=== PATIENT | female | born 1980 | race American Indian/Alaskan Native ===

== ENCOUNTER 2016-10-27 13:00 | Day surgery (SDC) | payer BC ==
[~2016-10-27 13:00] MED LIST: ANCEF/STERILE WATER 2 GM/20 ML IV NR; DILAUDID IV PRN; NACL 0.9% 1000 ML 1,000 ML IV SCH; NACL 0.9% IR ONE; PEPCID PO NR; SUBLIMAZE IV PRN; ZOFRAN IV PRN
--- NOTE | 2016-10-27 13:53 | Anesthesia Consultation ---
Anesthesia Consult and Med Hx Date of service: 10/27/16 - Airway Anesthetic Teeth Evaluation: Good (upper/lower braces) ROM Head & Neck: Adequate Mental/Hyoid Distance: Adequate Mallampati Class: Class II Intubation Access Assessment: Good - Pulmonary Exam CTA: Yes (clear blbs) - Cardiac Exam Cardiac Exam: RRR - Pre-Operative Health Status ASA Pre-Surgery Classification: ASA2 Proposed Anesthetic Plan: General - Central Nervous System Hx Psychiatric Problems: No - Endocrine Hx Hypothyroidism: Yes ("RESOLVED, NO MEDICINES") - Other Systems Hx Alcohol Use: Yes (SOCIALLY/1 EVERY 3 WKS) Hx Substance Use: No Hx Cancer: No - Additional Comments Anesthesia Medical History Comments: ADHD on meds
--- NOTE | 2016-10-27 13:54 | Anesthesia Day of Surgery ---
Anesthesia Day of Surgery - Day of Surgery Patient Examined: Yes Patient H&P Reviewed: Yes Patient is NPO: Yes Beta Blockers: No Cardiac Clearance: No Pulmonary Clearance: No
[2016-10-27] MEDS ORDERED: DIPRIVAN 10 MG/ML IV ONE (14:39)
[2016-10-27] MEDS ORDERED: DILAUDID ONE (14:39)
[2016-10-27] MEDS ORDERED: XYLOCAINE MPF 2% ONE (14:39)
[2016-10-27] MEDS ORDERED: DECADRON ONE (17:12)
[2016-10-27] MEDS ORDERED: NACL 0.9% IR ONE (17:36)
[2016-10-27] MEDS ORDERED: ZOFRAN ONE ×2 (17:41→19:57)
[2016-10-27] MEDS ORDERED: NACL 0.9% 1000 ML 1,000 ML ONE (17:41)
[2016-10-27] MEDS ORDERED: NORMODYNE IV ONE (17:48)
[2016-10-27] MEDS ORDERED: PERCOCET 5/325 PO PRN (20:03)
[2016-10-27] MEDS ORDERED: ZOFRAN IV PRN (20:03)
--- NOTE | 2016-10-27 20:25 | Operative Report ---
SERVICE: Plastic Surgery. PREOPERATIVE DIAGNOSIS: Macromastia. POSTOPERATIVE DIAGNOSIS: Macromastia. PROCEDURE: Bilateral reduction mammoplasty. SURGEON: Matt Valentin MD CORRECTIONAL OFFICER CHIEF: Jonas Reynoso CSA FINDINGS: 600 gm removed from the right breast, 480 gm removed from the left breast. DESCRIPTION OF PROCEDURE: The patient was brought to the operating room and placed on the table in supine position. Following administration of general anesthesia, bilateral breasts were prepped with Betadine solution and draped in usual sterile manner. A #10 blade scalpel was used to make a circumareolar skin incision followed by de-epithelization of an inferior dermal pedicle. Modified Harris pattern skin markings were incised with scalpel, deepened through subcutaneous fat and breast tissue using the electrocautery. Skin flaps were raised in standard manner as was fashioning of an inferior central mound pedicle. Hemostasis was controlled using electrocautery. Breast tissue was resected and sent to pathology as specimen. Closure was performed over 10-mm Cl drain using interrupted and running subcuticular 2-0 Monocryl sutures. Mastisol, Steri-Strips, and sterile dressings were applied. The patient tolerated the procedure well and returned to recovery room in stable condition. JOB# [id number] FTW/NTS
[2016-10-27 21:03] VITALS: BP 148/94
== END 2016-10-27 21:30 | disposition home or self-care (01) ==
LOC: OR 13:00
PROVIDERS: ATTEND Plastic Surgery
DX: N62 Hypertrophy of breast (principal); Z72.89 Other problems related to lifestyle; Z82.61 Family history of arthritis; Z83.3 Family history of diabetes mellitus; Z82.49 Family history of ischemic heart disease and other diseases of the circulatory system; Z82.3 Family history of stroke; Z81.8 Family history of other mental and behavioral disorders
CPT/HCPCS: 19318; 81025; 88305; J0690; J1100; J1170; J2405; J2704; J7030

== ENCOUNTER 2017-11-30 07:42 | Day surgery (SDC) | payer BC ==
--- NOTE | 2017-11-30 08:32 | Anesthesia Consultation ---
Anesthesia Consult and Med Hx Date of service: 11/30/17 - Airway Anesthetic Teeth Evaluation: Good (braces) ROM Head & Neck: Adequate Mental/Hyoid Distance: Adequate Mallampati Class: Class I Intubation Access Assessment: Good - Pulmonary Exam CTA: Yes - Cardiac Exam Cardiac Exam: RRR - Pre-Operative Health Status ASA Pre-Surgery Classification: ASA2 Proposed Anesthetic Plan: General (Informed consent obtained) - Central Nervous System Hx Psychiatric Problems: No (PT TAKING ADDERAL BUT STATES NO DIAGNOSIS. last dose was 2 days ago) - Endocrine Hx Hypothyroidism: Yes ("RESOLVED, NO MEDICINES") - Other Systems Hx Alcohol Use: Yes (OCC) Hx Substance Use: No Hx Cancer: No
--- NOTE | 2017-11-30 08:32 | Anesthesia Day of Surgery ---
Anesthesia Day of Surgery - Day of Surgery Patient Examined: Yes Patient H&P Reviewed: Yes Patient is NPO: Yes
--- NOTE | 2017-11-30 08:35 | Discharge Summary ---
Short Stay Discharge Plan Activity: no restrictions Weight Bearing Status: Full Weight Bearing Diet: regular Wound: remove dressing (72hrs. and may shower) Follow up with: ANN MARIE JOSEPH MD [Primary Care Provider] - 6 Weeks
--- NOTE | 2017-11-30 08:37 | Short Stay Summary ---
Short Stay Documentation Date of service: 11/30/17 - Allergies and Medications Current Medications: Allergies No Known Allergies Allergy (Verified 11/25/17 15:40) Home Medications Medication Instructions Recorded Confirmed Last Taken Type Dextroamphetamine/Amphetamine 20 mg PO DAILY 10/20/16 11/25/17 Unknown History [Adderall] Multivitamin Tab [Multiple Vitamin 1 each PO QDAY 10/20/16 11/25/17 Unknown History TAB (Theragran)] Vitamin E 1,000 unit PO DAILY 10/20/16 11/25/17 Unknown History Active Medications Cefazolin Sodium (Ancef/Sterile Water 2 Gm/20 Ml) 2 gm IV PREOP NR Hydromorphone HCl (Dilaudid) 0.5 mg IV Q10MIN PRN PRN Reason: Pain , Severe (7-10) Sodium Chloride (Nacl 0.9% 1000 Ml) 1,000 mls @ 100 mls/hr IV DIRECT TAWNYA - Brief post op/procedure progress note Date of procedure: 11/30/17 Pre-op diagnosis: Hypertrophic /Keloid Scarring of LT Breast Post-op diagnosis: same Procedure: LT Breast Complex Scar Revision Anesthesia: GETA Surgeon: HELENA WARD JR Estimated blood loss: minimal Pathology: none Specimen disposition: to lab Condition: stable - Disposition Condition at discharge: Good Disposition: DC-01 TO HOME OR SELFCARE Short Stay Discharge Plan Follow up with: ANN MARIE JOSEPH MD [Primary Care Provider] - 6 Weeks
[2017-11-30] MEDS ORDERED: VERSED ONE (08:52)
[2017-11-30] MEDS ORDERED: DIPRIVAN 10 MG/ML IV ONE (08:53)
[2017-11-30] MEDS ORDERED: SUBLIMAZE ONE (08:53)
[2017-11-30] MEDS ORDERED: XYLOCAINE MPF 2% ONE (08:56)
[2017-11-30] MEDS ORDERED: VERSED IV NR (09:00)
[2017-11-30] MEDS ORDERED: NACL 0.9% 1000 ML 1,000 ML IV SCH (09:00)
[2017-11-30] MEDS ORDERED: ANCEF/STERILE WATER 2 GM/20 ML IV NR (09:00)
[2017-11-30] MEDS ORDERED: TRANSDERM-SCOP TD NR (09:00)
[2017-11-30] MEDS ORDERED: NACL 0.9% IR ONE (09:59)
[2017-11-30] MEDS ORDERED: ROBINUL ONE (10:15)
[2017-11-30] MEDS ORDERED: DECADRON ONE (10:15)
[2017-11-30] MEDS ORDERED: ZOFRAN ONE (10:15)
--- NOTE | 2017-11-30 10:32 | Operative Report ---
PREOPERATIVE DIAGNOSIS: Hypertrophic/keloid scarring of left breast. POSTOPERATIVE DIAGNOSIS: Hypertrophic/keloid scarring of left breast. PROCEDURE: Complex scar revision of left breast 30 cm. SURGEON: Matt Valentin MD. PERMASTONE MECHANIC: Jonas Reynoso CSA. DESCRIPTION OF PROCEDURE: The patient was brought to the operating room and placed on the table in supine position. Following administration of general anesthesia, the left breast was prepped with Betadine solution, draped in usual sterile manner. Following preoperative markings, keloid scars were excised followed by hemostasis using electrocautery and closed in layers using interrupted and running subcuticular 2-0 and 3-0 Monocryl sutures. Mastisol, Steri-Strips, and sterile dressings applied. The patient tolerated the procedure well and returned to recovery room in stable condition and will be undergoing radiation therapy to these sites later today. JOB# [id number] FTW/JOSE LUIS
[2017-11-30] MEDS: DILAUDID IV PRN ×2 (10:58→11:16)
--- NOTE | 2017-11-30 11:12 | Post Anesthesia Evaluation ---
- Post Anesthesia Evaluation Patient Participated: Yes Airway Patent: Yes Stable Respiratory Function: Yes Nausea/Vomiting: No Temp > 96.8F: Yes Pain Manageable: Yes Adequeate Hydration: Yes Anesthesia Complications: No
[2017-11-30 12:00] VITALS: BP 134/85
[2017-11-30] MEDS ORDERED: NORCO 5/325 PO ONE (12:20)
== END 2017-11-30 12:50 | disposition home or self-care (01) ==
LOC: OR 07:42
PROVIDERS: ATTEND Plastic Surgery
DX: L91.0 Hypertrophic scar (principal); Z82.61 Family history of arthritis; Z82.49 Family history of ischemic heart disease and other diseases of the circulatory system
CPT/HCPCS: 13101; 13102; 81025; 88305; J0690; J1100; J1170; J2250; J2405; J2704; J3010; J7030